=== PATIENT | female | born 1995 ===

== ENCOUNTER 2021-06-29 08:44 | Inpatient (IN) | payer BC, MEDICAID ==
[2021-06-29] MEDS ORDERED: Carboprost Tromethamine 250 MCG/1 ML Amp IM PRN (10:05)
[2021-06-29] MEDS ORDERED: Lidocaine 1% 50 ML MDV INJECT PRN (10:05)
[2021-06-29] MEDS ORDERED: Butorphanol 1 MG/ML SDV IVPUSH PRN (10:05)
[2021-06-29] MEDS ORDERED: Sodium Chloride 0.9% 10 ML Syringe FLUSH PRN (10:05)
[2021-06-29] MEDS ORDERED: Sodium Chloride 0.9% 20 ML SDV IV PRN (10:05)
[2021-06-29] MEDS ORDERED: Misoprostol 200 MCG Tab PO PRN (10:05)
[2021-06-29] MEDS ORDERED: Sodium Chloride 0.9% 2.5 ML Syringe FLUSH PRN (10:05)
[2021-06-29] MEDS ORDERED: Methylergonovine 0.2 MG/1 ML Amp IM PRN (10:05)
[2021-06-29] MEDS ORDERED: Tranexamic Acid 1,000 MG in Sodium Chloride 0.9% 100 ML IV PRN (10:05)
[2021-06-29] MEDS ORDERED: Water For Irrigation,Sterile 1,000 ML Container IRR PRN (10:05)
[2021-06-29] MEDS ORDERED: Lactated Ringers 1,000 ML IV SCH (10:15)
[2021-06-29] MEDS ORDERED: Oxytocin/0.9 % Sodium Chloride 30 UNIT/500 ML BAG IV SCH (10:15)
[2021-06-29] MEDS ORDERED: Ibuprofen 400 MG Tab PO PRN ×2 (15:59→18:29)
[2021-06-29] MEDS ORDERED: oxyCODONE 5 MG Tab PO PRN (15:59)
[2021-06-29] MEDS ORDERED: Bisacodyl 10 MG Supp RECTAL PRN ×2 (15:59→18:29)
[2021-06-29] MEDS ORDERED: Benzocaine/Menthol 20%-0.5% Spray 78 GM Cannister TOP PRN ×2 (15:59→18:29)
[2021-06-29] MEDS ORDERED: Witch Hazel Medicated Pads 40/Jar TOP PRN ×2 (15:59→18:29)
[2021-06-29] MEDS ORDERED: Acetaminophen 500 MG Tab PO PRN ×4 (15:59→18:29)
[2021-06-29] MEDS ORDERED: Ibuprofen 800 MG Tab PO PRN ×2 (15:59→18:29)
[2021-06-29] MEDS ORDERED: Lanolin 100% Cream 7 GM Tube TOP PRN ×2 (15:59→18:29)
[2021-06-29] MEDS ORDERED: Docusate Sodium 100 MG Cap PO PRN ×2 (15:59→18:29)
[2021-06-30 15:53] VITALS: BP 102/66; PULSE 63
== END 2021-06-30 16:09 | disposition home or self-care (01) | DRG 560 ==
LOC: MW.OBCHECK 08:44 → MW.OB 08:44 → MW.OBCHECK 12:26 → OBSVTOIN 14:29 → MW.OB 17:18
PROVIDERS: ADMIT Obstetrics & Gynecology Obstetrics; ATTEND Obstetrics & Gynecology
PROC: 10E0XZZ Delivery of Products of Conception, External Approach (ICD-10-PCS; principal; 2021-06-29)
DX: O66.0 Obstructed labor due to shoulder dystocia (principal); Z3A.37 37 weeks gestation of pregnancy; Z37.0 Single live birth; Z20.822 Contact with and (suspected) exposure to COVID-19
CPT/HCPCS: 36415; 59025; 59409; 84112; 85014; 85018; 85027; 86592; 86850; 86900; 86901; A9270-GY; J2590; U0002

== ENCOUNTER 2023-05-13 18:13 | Inpatient (IN) | payer BC ==
[2023-05-13 18:55] LABS: BILIRUBIN,URINE NEGATIVE (NEGATIVE); COLOR,URINE YELLOW; GLUCOSE,URINE NEGATIVE (NEGATIVE); KETONES,URINE NEGATIVE (NEGATIVE); LEUKOCYTE ESTERASE,URINE MODERATE (NEGATIVE); NITRITE,URINE NEGATIVE (NEGATIVE); OCCULT BLOOD,URINE NEGATIVE (NEGATIVE); PH,URINE 6.5 (5.0-8.0); PROTEIN,URINE NEGATIVE (NEGATIVE); UROBILINOGEN,URINE 0.2 EU/dL (<2.0)
[2023-05-13 18:56] LABS: APPEARANCE,URINE HAZY
[2023-05-13] MEDS ORDERED: Sodium Chloride 0.9% 20 ML SDV IV PRN (20:03)
[2023-05-13] MEDS ORDERED: Tranexamic Acid IN NACL,ISO-OS 1,000 MG in Premix Bag 1 BAG IV PRN (20:03)
[2023-05-13] MEDS ORDERED: Sodium Chloride 0.9% 10 ML Syringe FLUSH PRN (20:03)
[2023-05-13] MEDS ORDERED: Ondansetron 4 MG/2 ML SDV IVPUSH PRN (20:03)
[2023-05-13] MEDS ORDERED: Methylergonovine 0.2 MG/1 ML Amp IM PRN (20:03)
[2023-05-13] MEDS ORDERED: Misoprostol 200 MCG Tab PO PRN (20:03)
[2023-05-13] MEDS ORDERED: Sodium Chloride 0.9% 2.5 ML Syringe FLUSH PRN (20:03)
[2023-05-13] MEDS ORDERED: Carboprost Tromethamine 250 MCG/1 mL Vial IM PRN (20:03)
[2023-05-13] MEDS ORDERED: Water For Irrigation,Sterile 1,000 ML Container IRR PRN (20:03)
[2023-05-13] MEDS ORDERED: Lidocaine 1% 50 ML MDV INJECT PRN (20:03)
[2023-05-13] MEDS ORDERED: Nalbuphine 10 MG/0.5 ML Syringe IVPUSH PRN (20:03)
[2023-05-13] MEDS ORDERED: Lactated Ringers 1,000 ML IV SCH (20:15)
[2023-05-13 21:20] LABS: HEMATOCRIT 35.8 % (37.0-47.0); HEMOGLOBIN 12.3 g/dL (12.0-16.0); MEAN CORPUSCULAR HEMOGLOBIN 32.2 pg (28.0-32.0); MEAN CORPUSCULAR HGB CONC 34.4 g/dL (32.0-36.0); MEAN CORPUSCULAR VOLUME 93.7 fL (83.0-99.0); MEAN PLATELET VOLUME 9.6 fL (9.4-12.3); PLATELET COUNT,PLT 195 K/uL (150-400); RED BLOOD CELL COUNT 3.82 M/uL (4.10-5.30); WHITE BLOOD CELL COUNT,WBC 11.79 K/uL (3.9-11.3)
[2023-05-14] MEDS: Oxytocin/0.9 % Sodium Chloride 30 UNIT/500 ML BAG IV SCH (01:15)
[2023-05-14] MEDS ORDERED: Docusate Sodium 100 MG Cap PO PRN (01:26)
[2023-05-14] MEDS ORDERED: Ibuprofen 800 MG Tab PO PRN (01:26)
[2023-05-14] MEDS ORDERED: Acetaminophen 500 MG Tab PO PRN (01:26)
[2023-05-14] MEDS: Witch Hazel Medicated Pads 40/Jar TOP PRN (02:35)
[2023-05-14] MEDS: Benzocaine/Menthol 20%-0.5% Spray 78 GM Cannister TOP PRN (02:35)
[2023-05-14] MEDS: Lanolin 100% Cream 7 GM Tube TOP PRN (02:36)
[2023-05-14 05:55] LABS: HEMOGLOBIN 11.7 g/dL (12.0-16.0); MEAN CORPUSCULAR HEMOGLOBIN 32.5 pg (28.0-32.0); MEAN CORPUSCULAR HGB CONC 34.4 g/dL (32.0-36.0); MEAN CORPUSCULAR VOLUME 94.4 fL (83.0-99.0); MEAN PLATELET VOLUME 9.4 fL (9.4-12.3); PLATELET COUNT,PLT 177 K/uL (150-400); WHITE BLOOD CELL COUNT,WBC 12.97 K/uL (3.9-11.3)
[2023-05-15 16:17] VITALS: BP 116/62; PULSE 66
== END 2023-05-15 16:00 | disposition home or self-care (01) | DRG 560 ==
LOC: MW.OBCHECK 18:13 → MW.OB 18:20 → MW.OBCHECK 20:03 → MW.OB 20:04 → OBSVTOIN 05-14 01:09 → MW.OB 05-14 04:43
PROVIDERS: ADMIT Obstetrics & Gynecology; ATTEND Obstetrics & Gynecology Obstetrics
PROC: 10E0XZZ Delivery of Products of Conception, External Approach (ICD-10-PCS; principal; 2023-05-14)
PROC: 3E033VJ Introduction of Other Hormone into Peripheral Vein, Percutaneous Approach (ICD-10-PCS; 2023-05-14)
DX: O60.14X0 Preterm labor third trimester with preterm delivery third trimester, not applicable or unspecified (principal); Z37.0 Single live birth; O69.81X0 Labor and delivery complicated by cord around neck, without compression, not applicable or unspecified; O99.334 Smoking (tobacco) complicating childbirth; F17.200 Nicotine dependence, unspecified, uncomplicated; Z3A.36 36 weeks gestation of pregnancy
CPT/HCPCS: 36415; 59025; 59409; 81003; 84112; 85027; 86592; 86850; 86900; 86901; A9270-GY; J2590